=== PATIENT | male | born 1990 | race Caucasian/White ===

== ENCOUNTER 2023-08-03 00:59 | Emergency (ER) | payer OTHER ==
[~2023-08-03] VITALS: Ht 170.2 cm; Wt 96.0 kg
[2023-08-03 01:01] VITALS: O2SAT 95
[2023-08-03] MEDS ORDERED: ONDANSETRON HCL 4MG/2ML INJ IV ONE (01:30)
[2023-08-03] MEDS ORDERED: SODIUM CHLORIDE 0.9% 1,000 ML IV ONE (01:30)
[2023-08-03] MEDS ORDERED: MORPHINE SULFATE 4 MG/ML CPJ (NOT FOR IM USE) IV ONE (01:30)
[2023-08-03] MEDS ORDERED: NAPR-1074 MT (03:53)
[2023-08-03 04:00] VITALS: BP 126/76; PULSE 68; RESP 12; TEMP 98.6
== END 2023-08-03 04:16 | disposition home or self-care (01) ==
LOC: ER 01:14
DX: M25.562 Pain in left knee (principal); F41.9 Anxiety disorder, unspecified
CPT/HCPCS: 73560; 73700; 96361; 96374; 96375; 99285; J2405; J2270; J7030; Z7610 ×2; L1830; 29505; 99284